=== PATIENT | male | born 1975 | race African-American/Black ===

== ENCOUNTER 2023-04-01 16:46 | Emergency (ER) | payer OTHER, SELFPAY ==
[2023-04-01 16:53] VITALS: BP 145/103; PULSE 82; RESP 20; TEMP 36.6; O2SAT 98; BMI 32.3
--- NOTE | 2023-04-01 16:59 | ED_ITS ---
HPI - General Adult General Chief complaint: Abdominal Pain Stated complaint: Flank Pain Time Seen by Provider: 04/01/23 16:58 Source: patient Mode of arrival: walk-in Limitations: no limitations History of Present Illness HPI narrative: Patient is a 48-year-old male who presents to the emergency department for the evaluation of right flank pain. Patient states approximately 1 month ago he was diagnosed with a kidney stone and urinary tract infection in [place] where he is a resident. He is currently staying at an addiction recovery facility locally. He states last night he had a return of pain to the right flank and right lower quadrant. He does not know if he may have passed a kidney stone, he has never had 1 previously. He has had no fevers, chills, nausea, vomiting. He denies urinary symptoms. He does not believe he finished the medications he was prescribed for UTI. No medications taken prior to arrival. Related Data Home Medications Medication Instructions Recorded Confirmed amlodipine 10 mg tablet 10 mg PO DAILY 04/01/23 04/01/23 tamsulosin 0.4 mg capsule 0.4 mg PO DAILY 04/01/23 04/01/23 Previous Rx's Medication Instructions Recorded ketorolac 10 mg tablet 10 mg PO Q8H PRN pain #14 tabs 04/01/23 Allergies Allergy/AdvReac Type Severity Reaction Status Date / Time ibuprofen [From Motrin] Allergy Severe Hives Verified 04/01/23 16:59 Review of Systems ROS Constitutional Denies: fever or chills Ears, nose, mouth, and throat Denies: throat pain Respiratory Denies: shortness of breath Gastrointestinal Reports: abdominal pain; Denies: nausea, vomiting or diarrhea Genitourinary Denies: painful urination Musculoskeletal Reports: back pain Integumentary/Breast Denies: rash Neurological Denies: headache Hematologic/Lymphatic Denies: easy bruising PFSH PFSH Social History Smoking status: Light tobacco smoker Exam Narrative Exam Narrative: Gen.: Awake, alert, in no distress Head: Normocephalic, atraumatic ENT: Moist mucous membranes Respiratory: No respiratory distress Gastrointestinal: Abdomen is soft, nondistended and tender to palpation in the right lower quadrant and right flank with no McBurney's point tenderness. No guarding or rebound. Extremities: Moves extremities equally Psych: Normal mood and affect Neuro: No focal neuro deficit Skin: Warm, dry, intact Constitutional Vital Signs, click to edit/add: Last Vital Signs Temp 98.1 F 04/01/23 19:37 Pulse 89 04/01/23 19:37 Resp 16 04/01/23 19:37 BP 159/90 H 04/01/23 19:37 Pulse Ox 99 04/01/23 19:37 O2 Del Method Room Air 04/01/23 19:37 Course Vital Signs Vital signs: Vital Signs Temperature 98 F 04/01/23 16:53 Pulse Rate 82 04/01/23 16:53 Respiratory Rate 20 04/01/23 16:53 Blood Pressure 145/103 H 04/01/23 16:53 Pulse Oximetry 98 04/01/23 16:53 Temperature 98.1 F 04/01/23 19:37 Pulse Rate 89 04/01/23 19:37 Respiratory Rate 16 04/01/23 19:37 Blood Pressure 159/90 H 04/01/23 19:37 Pulse Oximetry 99 04/01/23 19:37 Oxygen Delivery Method Room Air 04/01/23 19:37 Medical Decision Making MDM Narrative Medical decision making narrative: Patient is treated with IV fluids, Levsin, Norflex, Zofran with improvement. Lab studies are grossly unremarkable, urine specimen is unremarkable. CT of the abdomen and pelvis shows a 6 mm stone in the left proximal ureter with associated hydronephrosis although the patient has no pain on the left flank or left abdomen. He has only tenderness in the right lower quadrant. CT does not show any evidence of appendicitis. Patient is resting comfortably on reevaluation by attending physician. Patient believes he can take Toradol, he was given a dose of this in emergency department and observed. He will need to follow-up with urology for evaluation of the kidney stone although his pain at this time does not seem to be related. He will be discharged back to his recovery facility. Stable at time of discharge. Medical Records Medical records reviewed: Yes I reviewed the patient's medical records Lab Data Lab results reviewed: Yes I reviewed the patient's lab results Labs: Lab Results 04/01/23 04/01/23 Range/Units 17:15 17:36 WBC 3.8 L (4.0-11.0) 10^3/uL RBC 5.13 (4.70-6.10) 10^6/uL Hgb 15.7 (14.0-18.0) g/dL Hct 46.6 (42.0-54.0) % MCV 90.8 (80.0-94.0) fL MCH 30.6 (25.9-34.0) pg MCHC 33.7 (29.9-35.2) g/dL RDW 13.6 (11.0-15.0) % Plt Count 245 (150-450) 10^3/uL MPV 9.9 (9.5-13.5) fL Neut % (Auto) 29.6 L (43.0-75.0) % Lymph % (Auto) 53.7 (20.5-60.0) % Phillips % (Auto) 10.2 (1.7-12.0) % Eos % (Auto) 3.9 (0.9-7.0) % Baso % (Auto) 1.8 (0.2-2.0) % Neut # (Auto) 1.1 L (1.4-6.5) 10^3/uL Lymph # (Auto) 2.1 (1.2-3.8) 10^3/uL Phillips # (Auto) 0.4 (0.3-0.8) 10^3/uL Eos # (Auto) 0.2 (0.0-0.7) 10^3/uL Baso # (Auto) 0.1 (0.0-0.1) 10^3/uL Abs Immat Gran (auto) 0.03 (0.00-0.03) 10^3/uL Imm/Tot Granulo (auto) 0.8 H (0.0-0.5) % Sodium 137 (136-145) mmol/L Potassium 3.9 (3.5-5.1) mmol/L Chloride 101 (98-107) mmol/L Carbon Dioxide 26.3 (21.0-32.0) mmol/L Anion Gap 13.6 BUN 14.0 (7.0-18.0) mg/dL Creatinine 0.94 (0.70-1.30) mg/dL Est GFR ( Amer) >60 (>=60) Est GFR (Non-Af Amer) >60 (>=60) BUN/Creatinine Ratio 14.9 Glucose 98 (74-106) mg/dL Lactate 1.6 (0.4-2.0) mmol/L Calcium 9.2 (8.5-10.1) mg/dL Total Bilirubin 0.2 (0.2-1.0) mg/dL AST 24 (15-37) U/L ALT 38 (16-63) U/L Alkaline Phosphatase 56 (46-116) U/L Total Protein 8.3 H (6.4-8.2) g/dL Albumin 4.1 (3.4-5.0) g/dL Globulin 4.2 g/dL Albumin/Globulin Ratio 1.0 Urine Color Lt. yellow (YELLOW) Urine Clarity Clear (CLEAR) Urine pH 6.5 (5.0-9.0) Ur Specific [place] 1.020 (1.005-1.025) Urine Protein Negative (NEG/TRACE) mg/dL Urine Glucose (UA) Negative (NEGATIVE) mg/dL Urine Ketones Negative (NEGATIVE) mg/dL Urine Occult Blood Negative (NEGATIVE) Urine Nitrite Negative (NEGATIVE) Urine Bilirubin Negative (NEGATIVE) Urine Urobilinogen 0.2 (0.2-1.0) EU/dL Ur Leukocyte Esterase Negative (NEGATIVE) Imaging Data CT scan - abdomen: Attestation: I have reviewed the pertinent imaging results. Radiologist's impression: Procedure: CT abdomen pelvis wo con EXAM: CT abdomen pelvis wo con HISTORY: kidney stone COMPARISON: None. TECHNIQUE: Axial CT imaging was performed through the abdomen and pelvis without intravenous contrast. Multiplanar reformats were performed. Dose reduction techniques were achieved by using automated exposure control and/or adjustment of mA and/or kV according to patient size and/or use of iterative reconstruction technique. FINDINGS: Lung bases: Lung bases are clear. No pleural effusion. GI upper: Unremarkable. Liver: Normal size and contour. Gallbladder: No significant abnormality. No cholelithiasis. Biliary system: No intra or extrahepatic biliary ductal dilatation. Spleen: Normal size. Pancreas: Unremarkable. Adrenal glands: Normal adrenal glands. Kidneys/ureters: Normal contours. There is a 0.6 cm in stone in the proximal third of left ureter, resulting in moderate to severe left hydroureteronephrosis. There are multiple right renal stones measuring up to 1 cm without hydroureteronephrosis. Vessels: No aneurysm. Lymph Nodes: No lymphadenopathy. Small bowel: No wall thickening or dilatation. Colon: No wall thickening or dilatation. Moderate stool volume burden. Appendix: No findings of appendicitis. Peritoneal cavity: No free fluid or pneumoperitoneum. Lower : Unremarkable. Bones: No acute bony abnormality. Soft tissues: No acute finding. Additional findings: None. IMPRESSION: 0.6 cm in stone in the proximal third of left ureter, resulting in moderate to severe left hydroureteronephrosis. There are multiple right renal stones measuring up to 1 cm without hydroureteronephrosis. Constipation. Electronically authenticated by: TOREY OLIVA Date: 04/01/2023 18:28 Discharge Plan Discharge Chief Complaint: Abdominal Pain Clinical Impression: Hydronephrosis with ureteral calculus, Abdominal pain Patient Disposition: Home, Self-Care Time of Disposition Decision: 18:40 Prescriptions / Home Meds: New ketorolac 10 mg tablet 10 mg PO Q8H PRN (Reason: pain) Qty: 14 0RF No Action amlodipine 10 mg tablet 10 mg PO DAILY tamsulosin 0.4 mg capsule 0.4 mg PO DAILY Instructions: Abdominal Pain (ED), Hydronephrosis (ED), Ureteral Stones (ED) Stand Alone Forms: Portal Instructions Referrals: Castillo Escobar MD [Physician] - 1 week Discharge Date/Time: 04/01/23 19:40
--- NOTE | 2023-04-01 16:59 | CT_ITS ---
[address] [address] Patient Name: JOCELIN ZAZUETA MRN: [id number] date: 1975 Sex: M Assigned Patient Location: ER Current Patient Location: ER Accession/Order Number: [id number] Exam Date: 04/01/2023 17:45 Report Date: 04/01/2023 18:28 At the request of: VISHAL MALHOTRA Procedure: CT abdomen pelvis wo con EXAM: CT abdomen pelvis wo con HISTORY: kidney stone COMPARISON: None. TECHNIQUE: Axial CT imaging was performed through the abdomen and pelvis without intravenous contrast. Multiplanar reformats were performed. Dose reduction techniques were achieved by using automated exposure control and/or adjustment of mA and/or kV according to patient size and/or use of iterative reconstruction technique. FINDINGS: Lung bases: Lung bases are clear. No pleural effusion. GI upper: Unremarkable. Liver: Normal size and contour. Gallbladder: No significant abnormality. No cholelithiasis. Biliary system: No intra or extrahepatic biliary ductal dilatation. Spleen: Normal size. Pancreas: Unremarkable. Adrenal glands: Normal adrenal glands. Kidneys/ureters: Normal contours. There is a 0.6 cm in stone in the proximal third of left ureter, resulting in moderate to severe left hydroureteronephrosis. There are multiple right renal stones measuring up to 1 cm without hydroureteronephrosis. Vessels: No aneurysm. Lymph Nodes: No lymphadenopathy. Small bowel: No wall thickening or dilatation. Colon: No wall thickening or dilatation. Moderate stool volume burden. Appendix: No findings of appendicitis. Peritoneal cavity: No free fluid or pneumoperitoneum. Lower : Unremarkable. Bones: No acute bony abnormality. Soft tissues: No acute finding. Additional findings: None. CT/CT abdomen pelvis wo con IMPRESSION: 0.6 cm in stone in the proximal third of left ureter, resulting in moderate to severe left hydroureteronephrosis. There are multiple right renal stones measuring up to 1 cm without hydroureteronephrosis. Constipation. Electronically authenticated by: TOREY OLIVA Date: 04/01/2023 18:28
[2023-04-01] MEDS: ORPHENADRINE 60 MG/ 2 ML VIAL IV (17:34)
[2023-04-01] MEDS: HYOSCYAMINE SULFATE 0.125 MG TAB.SUBL SL (17:34)
[2023-04-01] MEDS: 0.9 % SODIUM CHLORIDE 1,000 ML 1000 ML IV (17:34)
[2023-04-01] MEDS: ONDANSETRON PF 4 MG/2 ML VIAL IV (17:34)
[2023-04-01 17:55] LABS: Basophils Absolute Auto 0.1 10^3/uL (0.0-0.1); Basophils Percent Auto 1.8 % (0.2-2.0); Eosinophils Absolute Auto 0.2 10^3/uL (0.0-0.7); Eosinophils Percent Auto 3.9 % (0.9-7.0); Hematocrit 46.6 % (42.0-54.0); Hemoglobin 15.7 g/dL (14.0-18.0); Immature Granulocytes Abs Auto 0.03 10^3/uL (0.00-0.03); Immature Granulocytes Pct Auto 0.8 % (0.0-0.5); Lymphocytes Absolute Auto 2.1 10^3/uL (1.2-3.8); Lymphocytes Percent Auto 53.7 % (20.5-60.0); Mean Corpuscular HGB Conc 33.7 g/dL (29.9-35.2); Mean Corpuscular Hemoglobin 30.6 pg (25.9-34.0); Mean Corpuscular Volume 90.8 fL (80.0-94.0); Mean Platelet Volume 9.9 fL (9.5-13.5); Monocytes Absolute Auto 0.4 10^3/uL (0.3-0.8); Monocytes Percent Auto 10.2 % (1.7-12.0); Neutrophils Absolute Auto 1.1 10^3/uL (1.4-6.5); Neutrophils Percent Auto 29.6 % (43.0-75.0); Platelet Count 245 10^3/uL (150-450); Red Blood Count 5.13 10^6/uL (4.70-6.10); Red Cell Distribution Width 13.6 % (11.0-15.0); White Blood Count 3.8 10^3/uL (4.0-11.0)
[2023-04-01 18:01] LABS: Bilirubin Urine NEGATIVE (NEGATIVE); Blood Urine NEGATIVE (NEGATIVE); Clarity Urine CLEAR (CLEAR); Color Urine LT. YELLOW (YELLOW); Glucose Urine UA NEGATIVE (NEGATIVE); Ketones Urine NEGATIVE (NEGATIVE); Leukocyte Esterase Urine NEGATIVE (NEGATIVE); Nitrite Urine NEGATIVE (NEGATIVE); Protein Urine NEGATIVE (NEG/TRACE); Urine Microscopic Indicated NO; Urobilinogen Urine 0.2 EU/dL (0.2-1.0); pH Urine 6.5 (5.0-9.0)
[2023-04-01 18:09] LABS: Alanine Aminotransferase 38 U/L (16-63); Albumin Level 4.1 g/dL (3.4-5.0); Alkaline Phosphatase 56 U/L (46-116); Anion Gap 13.6; Aspartate Amino Transferase 24 U/L (15-37); BUN Creatinine Ratio 14.9; Bilirubin Total 0.2 mg/dL (0.2-1.0); Calcium 9.2 mg/dL (8.5-10.1); Carbon Dioxide 26.3 mmol/L (21.0-32.0); Chloride 101 mmol/L (98-107); Estimated GFR (African America >60 (>=60); Estimated GFR (Non-African Ame >60 (>=60); Globulin 4.2 g/dL; Glucose 98 mg/dL (74-106); Potassium 3.9 mmol/L (3.5-5.1); Sodium 137 mmol/L (136-145); Total Protein 8.3 g/dL (6.4-8.2)
[2023-04-01 18:12] LABS: Lactate/Lactic Acid 1.6 mmol/L (0.4-2.0)
[2023-04-01] MEDS: KETOROLAC TROMETHAMINE 10 MG TABLET PO (18:55)
[2023-04-01 19:37] VITALS: BP 159/90; PULSE 89; RESP 16; TEMP 36.7; O2SAT 99
== END 2023-04-01 19:40 | disposition home or self-care (01) ==
PROVIDERS: Physician Assistant; Emergency Provider Emergency Medicine
DX: R10.9 Unspecified abdominal pain (principal); N13.2 Hydronephrosis with renal and ureteral calculous obstruction; Z87.440 Personal history of urinary (tract) infections; F17.210 Nicotine dependence, cigarettes, uncomplicated
CPT/HCPCS: 36415; 74176; 80053; 81003; 83605; 85025; 96374; 96375; 99285